=== PATIENT | female | born 1960 | race Caucasian/White ===

== ENCOUNTER 2023-06-21 10:53 | Inpatient (IN) | payer OTHER ==
[~2023-06-21] VITALS: Ht 160 cm; Wt 83.9 kg
[~2023-06-21 10:53] MED LIST: CIPROFLOXACIN750 MG PO; CLONAZEPAM1 MG PO; DOCUSATE SODIU100 MG PO; GABAPENTIN800 MG PO; PAXIL30 MG PO; PERCOCET 5/3251 TAB PO; TRAZODONE HCL100 MG PO
[2023-06-21] MEDS ORDERED: [UNRECOGNIZED DRUG - OTHER] (12:19)
[2023-06-21] MEDS ORDERED: BREO ELLIPTA 21 EACH IH (12:19)
[2023-06-21] MEDS ORDERED: FLONASE16 GM (12:20)
== END 2023-06-26 18:57 | disposition home or self-care (01) | DRG 518 ==
LOC: PED 06-25 04:00 → O/R 06-25 04:00 → SURG 06-25 07:00 → PED 06-25 10:54 → SURG 06-25 11:30 → PED 06-26 18:57
PROVIDERS: ADMIT Orthopaedic Surgery Orthopaedic Surgery of the Spine; ATTEND Orthopaedic Surgery Orthopaedic Surgery of the Spine
PROC: 0RT30ZZ Resection of Cervical Vertebral Disc, Open Approach (ICD-10-PCS; 2023-06-25)
PROC: 4A1104G Monitoring of Peripheral Nervous Electrical Activity, Intraoperative, Open Approach (ICD-10-PCS; 2023-06-25)
PROC: 0RR30JZ Replacement of Cervical Vertebral Disc with Synthetic Substitute, Open Approach (ICD-10-PCS; principal; 2023-06-25 07:00)
DX: M50.021 Cervical disc disorder at C4-C5 level with myelopathy (principal); M50.01 Cervical disc disorder with myelopathy, high cervical region; J45.909 Unspecified asthma, uncomplicated

== ENCOUNTER 2024-04-22 11:42 | Inpatient (IN) | payer OTHER ==
[~2024-04-22] VITALS: Ht 160 cm; Wt 81.6 kg
[~2024-04-22 11:42] MED LIST changes: +BREO ELLIPTA 21 EACH IH; +FLONASE16 GM; +[UNRECOGNIZED DRUG - OTHER]
[2024-04-29] MEDS ORDERED: FUROSEMIDE20 MG (14:13)
[2024-04-29] MEDS ORDERED: RESTORIL30 MG (14:13)
[2024-04-29] MEDS ORDERED: LATANOPROST2.5 ML (14:13)
[2024-04-29] MEDS ORDERED: SULINDAC200 MG (14:13)
[2024-04-29] MEDS ORDERED: MONTELUKAST SOD10 MG (14:13)
[2024-04-29] MEDS ORDERED: CEFAZOLIN SODIUM 2,000 MG in 0.9 % SODIUM CHLORIDE 100 ML IV ONE (16:30)
[2024-04-29] MEDS ORDERED: METHYLPREDNISOLONE SOD SUCC 125 MG VIAL IV ONE ×2 (16:30→18:30)
[2024-04-29] MEDS ORDERED: TRANEXAMIC ACID 1,000 MG in 0.9 % SODIUM CHLORIDE 100 ML IV ONE (16:30)
[2024-04-29] MEDS ORDERED: IOVERSOL 320 MG/ML - 50 ML VIAL IV ONE (16:30)
[2024-04-29] MEDS ORDERED: VANCOMYCIN HCL 1,000 MG in 0.9 % SODIUM CHLORIDE 250 ML IV ONE (16:30)
[2024-04-29] MEDS ORDERED: VANCOMYCIN HCL 1,000 MG VIAL IR ONE (16:30)
[2024-04-29] MEDS ORDERED: PROMETHAZINE HCL 50 MG/ML AMPUL IM PRN (17:45)
[2024-04-29] MEDS ORDERED: ENALAPRILAT DIHYDRATE 1.25 MG/ML VIAL IV PRN (17:45)
[2024-04-29] MEDS ORDERED: 0.9 % SODIUM CHLORIDE 1,000 ML IV SCH (17:45)
[2024-04-29] MEDS ORDERED: MEDROLPACK PO (17:57)
[2024-04-29] MEDS ORDERED: PERCOCET 5-3251 EACH PO (17:57)
[2024-04-29] MEDS ORDERED: ZOFRAN8 MG PO (17:58)
[2024-04-29] MEDS ORDERED: AMOX-CLAV 875-1 EACH PO (17:58)
[2024-04-29] MEDS ORDERED: GABAPENTIN100 M2 PO (17:58)
[2024-04-29] MEDS ORDERED: NEURONTIN800 MG PO (17:59)
[2024-04-29] MEDS ORDERED: VANCOMYCIN HCL 1,000 MG VIAL SPEPROC ONE (18:30)
[2024-04-29] MEDS ORDERED: MORPHINE SULFATE 4 MG/ML VIAL IV ONE ×3 (18:30→19:30)
[2024-04-29] MEDS ORDERED: METHYLPREDNISOLONE ACETATE 80 MG/ML VIAL IJ ONE (18:30)
[2024-04-29 20:27] VITALS: BP 138/88; O2SAT 98
[2024-04-29] MEDS ORDERED: MORPHINE SULFATE 4 MG,MORPHINE SULFATE 2 MG IV SCH (21:00)
[2024-04-29] MEDS ORDERED: GABAPENTIN 800 MG TABLET PO SCH (21:00)
[2024-04-29] MEDS ORDERED: VANCOMYCIN HCL 1,000 MG VIAL IV SCH (21:00)
[2024-04-30] MEDS ORDERED: SODIUM CHLORIDE 0.45 % 1,000 ML IV SCH
[2024-04-30] MEDS ORDERED: CEFAZOLIN SODIUM 1,000 MG in 0.9 % SODIUM CHLORIDE 50 ML IV SCH (01:00)
[2024-04-30] MEDS ORDERED: METHYLPREDNISOLONE SOD SUCC 125 MG VIAL IV SCH (01:00)
[2024-04-30] MEDS ORDERED: ALBUTEROL SULFATE 3 ML/2.5 MG AMPUL.NEB IH SCH (01:00)
[2024-04-30 01:11] VITALS: BP 113/68; O2SAT 97
[2024-04-30 04:00] VITALS: BP 112/71; O2SAT 98
[2024-04-30 05:17] LABS: HEMATOCRIT 38.9 % (36.0-45.00); HEMOGLOBIN 13.1 g/dL (12.0-15.00); MEAN CELL VOLUME 88.4 fL (80.00-100.00); MEAN CORPUSCULAR HEMOGLOBIN 29.7 pg (27.00-32.0); MEAN CORPUSCULAR HGB CONC 33.6 g/dl (32.0-36.0); PLATELET COUNT 278 K/uL (150-450)
[2024-04-30 05:40] LABS: CALCIUM 8.5 mg/dL (8.5-10.1); CREATININE SERUM 0.73 mg/dL (0.55-1.02); GFR 80.26; POTASSIUM 4.68 mEq/L (3.5-5.1)
[2024-04-30] MEDS ORDERED: OxyCODONE HCL/APAP UD (PERCOCET) PO PRN (06:01)
[2024-04-30 08:40] VITALS: BP 103/63; O2SAT 97
[2024-04-30] MEDS ORDERED: PAROXETINE HCL 10 MG TABLET PO SCH (09:00)
[2024-04-30] MEDS ORDERED: CLONAZEPAM 1 MG TABLET PO SCH (09:00)
[2024-04-30] MEDS ORDERED: FAMOtidine 20 MG TABLET PO SCH (09:00)
[2024-04-30] MEDS ORDERED: DOCUSATE SODIUM 100MG CAP PO SCH (09:00)
[2024-04-30] MEDS ORDERED: TAMSULOSIN HCL 0.4 MG CAP PO SCH (09:00)
[2024-04-30 12:34] VITALS: BP 132/69; O2SAT 97
[2024-04-30 16:00] VITALS: BP 114/68; O2SAT 98
[2024-04-30] MEDS ORDERED: MONTELUKAST SODIUM 10 MG TABLET PO SCH (17:00)
[2024-04-30 20:13] VITALS: BP 121/70; O2SAT 95
[2024-05-01 00:05] VITALS: BP 115/69; O2SAT 96
[2024-05-01 04:00] VITALS: BP 123/64; O2SAT 96
[2024-05-01 08:39] VITALS: BP 134/74; BP 144/75; O2SAT 96
[2024-05-01 11:45] VITALS: BP 133/65; O2SAT 98
== END 2024-05-01 12:12 | disposition home health service (06) | DRG 455 ==
LOC: O/R 04-29 05:00 → PED 04-29 05:00 → SURH 04-29 10:15 → PED 04-29 18:43
PROVIDERS: ADMIT Orthopaedic Surgery Orthopaedic Surgery of the Spine; ATTEND Orthopaedic Surgery Orthopaedic Surgery of the Spine
PROC: 0SG3071 Fusion of Lumbosacral Joint with Autologous Tissue Substitute, Posterior Approach, Posterior Column, Open Approach (ICD-10-PCS; 2024-04-29)
PROC: 0ST40ZZ Resection of Lumbosacral Disc, Open Approach (ICD-10-PCS; 2024-04-29)
PROC: 0QB30ZZ Excision of Left Pelvic Bone, Open Approach (ICD-10-PCS; 2024-04-29)
PROC: 07DR0ZZ Extraction of Iliac Bone Marrow, Open Approach (ICD-10-PCS; 2024-04-29)
PROC: 4A1104G Monitoring of Peripheral Nervous Electrical Activity, Intraoperative, Open Approach (ICD-10-PCS; 2024-04-29)
PROC: XRGD0R7 Fusion of Lumbosacral Joint using Custom-Made Anatomically Designed Interbody Fusion Device, Open Approach, New Technology Group 7 (ICD-10-PCS; principal; 2024-04-29 10:15)
DX: M48.07 Spinal stenosis, lumbosacral region (principal); M43.17 Spondylolisthesis, lumbosacral region; M54.17 Radiculopathy, lumbosacral region